=== PATIENT | female | born 1985 | race Two or more races ===

== ENCOUNTER 2020-05-09 17:00 | Outpatient (CLI) | payer OTHER | END 2020-05-09 18:00 | disposition home or self-care (01) | LOC: LAB 17:00 | PROVIDERS: ATTEND General Practice | DX: J11.1 Influenza due to unidentified influenza virus with other respiratory manifestations (principal); Z20.828 Contact with and (suspected) exposure to other viral communicable diseases; R21 Rash and other nonspecific skin eruption; Z11.59 Encounter for screening for other viral diseases; R53.81 Other malaise ==

== ENCOUNTER 2020-05-12 15:09 | Outpatient (CLI) | payer OTHER | END 2020-05-12 15:14 | disposition home or self-care (01) | LOC: LAB 15:09 | PROVIDERS: ATTEND General Practice | DX: D69.49 Other primary thrombocytopenia (principal) ==